=== PATIENT | male | born 1950 | race African-American/Black ===

== ENCOUNTER 2021-09-15 11:16 | Inpatient (IN) | payer OTHER ==
[~2021-09-15] VITALS: Ht 188 cm; Wt 87.6 kg
[~2021-09-15 11:16] MED LIST: ASPI-1497 MT; LEVO50TA PO; METO-539 MT
[2021-09-15 12:41] LABS: BASOPHILS % 0.5 % (0.0-2.0); EOSINOPHILS % 1.4 % (0.0-5.0); HEMATOCRIT. 37.6 % (42.0-52.0); HEMOGLOBIN. 12.3 g/dL (14.0-18.0); LYMPHOCYTES % 16.4 % (20.0-50.0); MEAN CORPUSCULAR HEMOGLOBIN 29.4 pg (28.0-32.0); MEAN CORPUSCULAR VOLUME 89.5 fL (80.0-94.0); MEAN PLATELET VOLUME 7.4 fl (7.4-10.4); MONOCYTES % 3.8 % (2.0-8.0); NEUTROPHILS % 77.9 % (40.0-76.0); PLATELET 113 x1000/uL (130-400); RED CELL DISTRIBUTION WIDTH 27.3 % (11.6-14.6)
[2021-09-15] MEDS ORDERED: DILTIAZEM HCL 5MG/ML 5ML VIAL IV ONE (12:45)
[2021-09-15] MEDS ORDERED: SODIUM CHLORIDE 0.9% 500 ML IV ONE (12:45)
[2021-09-15 12:56] LABS: CHLORIDE 93 mEq/L (98-107)
[2021-09-15 13:13] LABS: PLATELET ESTIMATE SLIGHTLY DECREASED
[2021-09-15] MEDS ORDERED: MIDAZOLAM HCL 2 MG/2 ML VIAL IV ONE (14:15)
[2021-09-15] MEDS ORDERED: ONDANSETRON HCL 4MG/2ML INJ IV PRN (14:30)
[2021-09-15] MEDS ORDERED: ACETAMINOPHEN 325MG TABLET PO PRN (14:30)
[2021-09-15 16:20] VITALS: BP_SYST 114; BP_SYST 135; BP_SYST 92; BP_DIAS 58; BP_DIAS 77; BP_DIAS 86
[2021-09-15 20:00] VITALS: BP 122/68
[2021-09-16] VITALS (7 sets, daily range): BP systolic 88–120; BP diastolic 51–76
[2021-09-16 06:56] LABS: HEMATOCRIT. 33.2 % (42.0-52.0); HEMOGLOBIN. 10.8 g/dL (14.0-18.0); MEAN CORPUSCULAR HEMOGLOBIN 29.3 pg (28.0-32.0); MEAN CORPUSCULAR VOLUME 90.2 fL (80.0-94.0); MEAN PLATELET VOLUME 7.8 fl (7.4-10.4); PLATELET 93 x1000/uL (130-400); RED BLOOD CELL COUNT 3.68 mill/uL (4.7-6.1); RED CELL DISTRIBUTION WIDTH 27.3 % (11.6-14.6)
[2021-09-16] MEDS ORDERED: POTASSIUM CHLORIDE 20MEQ TABLET SR PO NR (08:00)
[2021-09-16 09:51] LABS: PLATELET ESTIMATE DECREASED
[2021-09-16] MEDS ORDERED: MAGNESIUM 4 G PREMIX 100 ML IV NR (10:00)
[2021-09-16] MEDS: APIXABAN 5 MG TABLET PO SCH ×2 (12:41→21:19)
[2021-09-16] MEDS: FLUDROCORTISONE ACETATE 0.1MG TABLET PO SCH (15:36)
[2021-09-17] VITALS: BP 118/66
[2021-09-17 04:00] VITALS: BP_SYST 140; BP_SYST 147; BP_SYST 152; BP_DIAS 74; BP_DIAS 91; BP_DIAS 93
[2021-09-17 06:03] LABS: BASOPHILS % 0.5 % (0.0-2.0); EOSINOPHILS % 6.3 % (0.0-5.0); HEMATOCRIT. 30.5 % (42.0-52.0); HEMOGLOBIN. 10.2 g/dL (14.0-18.0); LYMPHOCYTES % 22.7 % (20.0-50.0); MEAN CORPUSCULAR HEMOGLOBIN 29.9 pg (28.0-32.0); MEAN CORPUSCULAR VOLUME 89.4 fL (80.0-94.0); MEAN PLATELET VOLUME 7.7 fl (7.4-10.4); MONOCYTES % 5.9 % (2.0-8.0); NEUTROPHILS % 64.6 % (40.0-76.0); PLATELET 73 x1000/uL (130-400); RED BLOOD CELL COUNT 3.42 mill/uL (4.7-6.1); RED CELL DISTRIBUTION WIDTH 27.1 % (11.6-14.6)
[2021-09-17 06:59] LABS: CHLORIDE 94 mEq/L (98-107)
[2021-09-17 08:00] VITALS: BP_SYST 116; BP_SYST 128; BP_DIAS 60; BP_DIAS 76
[2021-09-17] MEDS ORDERED: POTASSIUM CHLORIDE 20MEQ TABLET SR PO NR (09:15)
[2021-09-17] MEDS: FLUDROCORTISONE ACETATE 0.1MG TABLET PO SCH (09:23)
[2021-09-17] MEDS: APIXABAN 5 MG TABLET PO SCH ×2 (09:23→21:25)
[2021-09-17 12:00] VITALS: BP 146/91
[2021-09-17] MEDS: MIDODRINE HCL 5MG TABLET PO SCH ×2 (14:00→21:35)
[2021-09-17 16:00] VITALS: BP 150/92
[2021-09-17] MEDS ORDERED: CYAN-50 PO (19:17)
[2021-09-17] MEDS ORDERED: AMLO5TAB88 PO (19:17)
[2021-09-17] MEDS ORDERED: ALLO100T PO (19:17)
[2021-09-17] MEDS ORDERED: CARB15DR EACHEYE (19:17)
[2021-09-17] MEDS ORDERED: METO-539 PO (19:17)
[2021-09-17] MEDS ORDERED: LIP40 PO (19:17)
[2021-09-17] MEDS ORDERED: ASPI-1406 PO (19:17)
[2021-09-17] MEDS ORDERED: GABA-532 PO (19:36)
[2021-09-17] MEDS ORDERED: FERR325T6 PO (19:36)
[2021-09-17] MEDS ORDERED: DIGO125T80 PO (19:36)
[2021-09-17] MEDS ORDERED: [UNRECOGNIZED DRUG - OTHER] TOP (19:36)
[2021-09-17] MEDS ORDERED: MAGN420T PO (19:36)
[2021-09-17] MEDS ORDERED: FENO48TA10 PO (19:36)
[2021-09-17 20:00] VITALS: BP 146/83
[2021-09-18] VITALS: BP 158/71
[2021-09-18 04:00] VITALS: BP 176/96
[2021-09-18] MEDS: MIDODRINE HCL 5MG TABLET PO SCH ×3 (05:54→21:01)
[2021-09-18 06:49] LABS: BASOPHILS % 0.4 % (0.0-2.0); EOSINOPHILS % 4.5 % (0.0-5.0); HEMATOCRIT. 30.7 % (42.0-52.0); HEMOGLOBIN. 10.3 g/dL (14.0-18.0); LYMPHOCYTES % 20.4 % (20.0-50.0); MEAN CORPUSCULAR HEMOGLOBIN 29.9 pg (28.0-32.0); MEAN CORPUSCULAR VOLUME 89.4 fL (80.0-94.0); MEAN PLATELET VOLUME 7.7 fl (7.4-10.4); MONOCYTES % 9.1 % (2.0-8.0); NEUTROPHILS % 65.6 % (40.0-76.0); PLATELET 71 x1000/uL (130-400); RED BLOOD CELL COUNT 3.44 mill/uL (4.7-6.1); RED CELL DISTRIBUTION WIDTH 27.5 % (11.6-14.6)
[2021-09-18 07:38] LABS: CHLORIDE 94 mEq/L (98-107)
[2021-09-18 08:04] VITALS: BP_SYST 153; BP_SYST 177; BP_DIAS 84; BP_DIAS 99
[2021-09-18] MEDS: FLUDROCORTISONE ACETATE 0.1MG TABLET PO SCH (08:18)
[2021-09-18] MEDS: APIXABAN 5 MG TABLET PO SCH ×2 (08:18→20:30)
[2021-09-18 10:12] LABS: CLARITY URINE CLEAR (CLEAR); COLOR URINE YELLOW (YELLOW); KETONES URINE NEGATIVE (NEGATIVE); LEUKOCYTE ESTERASE URINE NEGATIVE (NEGATIVE); NITRITE URINE NEGATIVE (NEGATIVE); OCCULT BLOOD URINE 2+ (NEGATIVE); PROTEIN URINE NEGATIVE (NEGATIVE); SPECIFIC GRAVITY URINE 1.004 (1.005-1.030); UROBILINOGEN URINE 0.2 E.U./dL (0.2-1.0)
[2021-09-18] MEDS: POTASSIUM CHLORIDE 20MEQ/PACKET PO NR ×2 (11:43→11:46)
[2021-09-18 12:15] VITALS: BP 144/82
[2021-09-18] MEDS ORDERED: MECLIZINE 12.5MG TABLET PO PRN (13:15)
[2021-09-18 15:40] VITALS: BP 174/100
[2021-09-18 20:00] VITALS: BP 154/94
[2021-09-19] VITALS: BP 153/82
[2021-09-19 04:00] VITALS: BP 144/86
[2021-09-19] MEDS: MIDODRINE HCL 5MG TABLET PO SCH ×3 (06:05→21:17)
[2021-09-19 06:38] LABS: BASOPHILS % 0.4 % (0.0-2.0); EOSINOPHILS % 0.9 % (0.0-5.0); HEMATOCRIT. 30.4 % (42.0-52.0); LYMPHOCYTES % 17.3 % (20.0-50.0); MEAN CORPUSCULAR HEMOGLOBIN 29.4 pg (28.0-32.0); MEAN CORPUSCULAR VOLUME 89.4 fL (80.0-94.0); MEAN PLATELET VOLUME 7.4 fl (7.4-10.4); MONOCYTES % 13.8 % (2.0-8.0); NEUTROPHILS % 67.6 % (40.0-76.0); PLATELET 85 x1000/uL (130-400); RED CELL DISTRIBUTION WIDTH 28.2 % (11.6-14.6)
[2021-09-19 07:11] LABS: CHLORIDE 94 mEq/L (98-107)
[2021-09-19 08:00] VITALS: BP 128/72
[2021-09-19] MEDS: APIXABAN 5 MG TABLET PO SCH ×2 (10:05→21:16)
[2021-09-19] MEDS: FLUDROCORTISONE ACETATE 0.1MG TABLET PO SCH (10:05)
[2021-09-19 12:00] VITALS: BP 122/79
[2021-09-19] MEDS ORDERED: MAGNESIUM 4 G PREMIX 100 ML IV NR (14:00)
[2021-09-19] MEDS ORDERED: POTASSIUM CHLORIDE 20MEQ TABLET SR PO NR (15:30)
[2021-09-19 16:00] VITALS: BP 120/70
[2021-09-19 20:00] VITALS: BP 143/76
[2021-09-20] VITALS: BP 150/85
[2021-09-20 04:00] VITALS: BP 135/89
[2021-09-20] MEDS: MIDODRINE HCL 5MG TABLET PO SCH ×2 (05:29→14:00)
[2021-09-20 08:00] VITALS: BP_SYST 122; BP_SYST 124; BP_SYST 138; BP_DIAS 76; BP_DIAS 79; BP_DIAS 82
[2021-09-20 08:12] LABS: HEMOGLOBIN. 10.1 g/dL (14.0-18.0); MEAN CORPUSCULAR HEMOGLOBIN 29.9 pg (28.0-32.0); MEAN CORPUSCULAR VOLUME 88.8 fL (80.0-94.0); MEAN PLATELET VOLUME 7.7 fl (7.4-10.4); PLATELET 155 x1000/uL (130-400); RED BLOOD CELL COUNT 3.37 mill/uL (4.7-6.1); RED CELL DISTRIBUTION WIDTH 27.1 % (11.6-14.6)
[2021-09-20 08:58] LABS: CHLORIDE 95 mEq/L (98-107)
[2021-09-20] MEDS: APIXABAN 5 MG TABLET PO SCH (09:28)
[2021-09-20] MEDS: FLUDROCORTISONE ACETATE 0.1MG TABLET PO SCH (09:28)
[2021-09-20 12:00] VITALS: BP_SYST 121; BP_SYST 127; BP_DIAS 76; BP_DIAS 82
[2021-09-20] MEDS ORDERED: APIX5TAB PO (12:30)
[2021-09-20] MEDS ORDERED: FLOR PO (12:30)
[2021-09-20] MEDS ORDERED: MIDO5TAB4 PO (12:30)
[2021-09-20 15:06] LABS: PLATELET ESTIMATE NORMAL
[2021-09-20 16:00] VITALS: BP 146/85
[2021-09-20 17:01] VITALS: BP 146/85
== END 2021-09-20 19:00 | disposition home or self-care (01) | DRG 73 ==
LOC: ER 11:16 → ENRESERV 15:14 → 8WST 17:04
PROVIDERS: ADMIT Internal Medicine; ATTEND Internal Medicine
PROC: 5A2204Z Restoration of Cardiac Rhythm, Single (ICD-10-PCS; principal; 2021-09-15)
DX: G90.8 Other disorders of autonomic nervous system (principal); N17.0 Acute kidney failure with tubular necrosis; I48.92 Unspecified atrial flutter; E44.1 Mild protein-calorie malnutrition; I50.30 Unspecified diastolic (congestive) heart failure; I47.1 Supraventricular tachycardia; E87.8 Other disorders of electrolyte and fluid balance, not elsewhere classified; I48.91 Unspecified atrial fibrillation; I11.0 Hypertensive heart disease with heart failure; M10.9 Gout, unspecified; M19.90 Unspecified osteoarthritis, unspecified site; G47.33 Obstructive sleep apnea (adult) (pediatric); D64.9 Anemia, unspecified; E03.9 Hypothyroidism, unspecified; E78.00 Pure hypercholesterolemia, unspecified; G62.9 Polyneuropathy, unspecified; M75.52 Bursitis of left shoulder; I95.1 Orthostatic hypotension; M75.51 Bursitis of right shoulder; G56.02 Carpal tunnel syndrome, left upper limb; Z83.3 Family history of diabetes mellitus; Z88.5 Allergy status to narcotic agent; Z63.4 Disappearance and death of family member; Z88.8 Allergy status to other drugs, medicaments and biological substances; Z79.01 Long term (current) use of anticoagulants; Z79.899 Other long term (current) drug therapy; Z68.24 Body mass index [BMI] 24.0-24.9, adult
CPT/HCPCS: 36415; 71045; 80048; 80053; 80061; 81003; 83735; 83880; 84484; 85025; 93005; 93306; 97161; 97162; 97530; 99291; J2250; J3475; J3490; J7040

== ENCOUNTER 2022-05-05 11:16 | Inpatient (IN) | payer OTHER ==
[~2022-05-05] VITALS: Ht 188 cm; Wt 89.8 kg
[~2022-05-05 11:16] MED LIST changes: +ALLO100T PO; +ASPI-1406 PO; -ASPI-1497 MT; +CARB15DR EACHEYE; +CYAN-50 PO; +DIGO-34 PO; +DILT30TA37 PO; +FENO48TA10 PO; +FERR-63 PO; +FERR325T6 PO; +FLOR PO; +FOLI-43 PO; +GABA-532 PO; -LEVO50TA PO; +LEVO75TA7 PO; +LIP40 PO; +MAGN420T PO; -METO-539 MT; +MIDO5TAB4 PO; +[UNRECOGNIZED DRUG - OTHER] TOP
[2022-05-05] MEDS ORDERED: HYDROCODONE/ACETAMINOPHEN 5/325MG TABLET PO STA (12:24)
[2022-05-05] MEDS ORDERED: SODIUM CHLORIDE 0.9% 1,000 ML IV ONE (12:30)
[2022-05-05 13:10] LABS: BASOPHILS % 0.7 % (0.0-2.0); LYMPHOCYTES % 15.1 % (20.0-50.0); MEAN CORPUSCULAR HEMOGLOBIN 28.8 pg (28.0-32.0); MEAN CORPUSCULAR VOLUME 89.4 fL (80.0-94.0); MEAN PLATELET VOLUME 7.8 fl (7.4-10.4); MONOCYTES % 5.2 % (2.0-8.0); PLATELET 100 x1000/uL (130-400); RED BLOOD CELL COUNT 3.47 mill/uL (4.7-6.1); RED CELL DISTRIBUTION WIDTH 22.5 % (11.6-14.6)
[2022-05-05 13:16] LABS: CHLORIDE 99 mEq/L (98-107)
[2022-05-05 13:20] LABS: INR 1.2; PROTHROMBIN TIME 12.4 sec (9.6-11.0)
[2022-05-05 13:26] LABS: PLATELET ESTIMATE DECREASED
[2022-05-05] MEDS ORDERED: POTASSIUM CHLORIDE 20MEQ TABLET SR PO ONE (14:00)
[2022-05-05] MEDS ORDERED: ASPIRIN 81MG TABLET PO ONE (14:00)
[2022-05-05] MEDS ORDERED: KCL 10MEQ/50ML PREMIX 50 ML IV ONE (14:00)
[2022-05-05] MEDS ORDERED: HYDROCODONE/ACETAMINOPHEN 5/325MG TABLET PO SCH (15:15)
[2022-05-05] MEDS ORDERED: MAGNESIUM/ALUMINUM HYDROXIDE/SIMETHICONE 30ML UDC PO PRN (15:45)
[2022-05-05] MEDS ORDERED: DOCUSATE SODIUM 100MG CAPSULE PO PRN (15:45)
[2022-05-05] MEDS ORDERED: ENOXAPARIN 40MG/0.4ML SYR SUBCUT SCH (15:45)
[2022-05-05] MEDS ORDERED: CLONIDINE 0.1MG TABLET PO PRN (15:45)
[2022-05-05] MEDS ORDERED: ONDANSETRON HCL 4MG/2ML INJ IV PRN (15:45)
[2022-05-05] MEDS ORDERED: ACETAMINOPHEN 325MG TABLET PO PRN (15:45)
[2022-05-05] MEDS ORDERED: LORAZEPAM 2MG/ML CPJ IV ONE (16:15)
[2022-05-05] MEDS ORDERED: MAGNESIUM 2 G PREMIX 50 ML IV NR (16:15)
[2022-05-05 19:34] LABS: CREATINE KINASE MB FRACTION < 1.0 ng/mL (0.5-3.6)
[2022-05-05 20:42] VITALS: BP 142/78
[2022-05-05] MEDS ORDERED: MIDODRINE HCL 5MG TABLET PO SCH (22:00)
[2022-05-06] MEDS: DIGOXIN 125MCG TABLET PO SCH ×2 (00:02→19:03)
[2022-05-06] MEDS: GABAPENTIN 300MG CAPSULE PO SCH ×4 (00:03→17:09)
[2022-05-06] MEDS: DILTIAZEM HCL 30MG TABLET PO SCH ×4 (00:07→21:57)
[2022-05-06] MEDS: APIXABAN 5 MG TABLET PO SCH ×3 (00:08→17:09)
[2022-05-06] MEDS: SODIUM CHLORIDE 0.9% INJ 3ML FLUSH IVF SCH ×4 (00:08→21:56)
[2022-05-06] MEDS: LEVOTHYROXINE SODIUM 75MCG TABLET PO SCH (06:27)
[2022-05-06] MEDS: MIDODRINE HCL 5MG TABLET PO SCH ×2 (06:27→13:33)
[2022-05-06 07:14] LABS: BASOPHILS % 0.6 % (0.0-2.0); EOSINOPHILS % 6.3 % (0.0-5.0); HEMATOCRIT. 27.3 % (42.0-52.0); HEMOGLOBIN. 8.9 g/dL (14.0-18.0); LYMPHOCYTES % 25.3 % (20.0-50.0); MEAN CORPUSCULAR HEMOGLOBIN 29.7 pg (28.0-32.0); MEAN PLATELET VOLUME 8.1 fl (7.4-10.4); MONOCYTES % 7.2 % (2.0-8.0); NEUTROPHILS % 60.6 % (40.0-76.0); PLATELET 97 x1000/uL (130-400); RED BLOOD CELL COUNT 2.99 mill/uL (4.7-6.1); RED CELL DISTRIBUTION WIDTH 22.2 % (11.6-14.6)
[2022-05-06 08:00] VITALS: BP 125/72
[2022-05-06 08:10] LABS: CHLORIDE 102 mEq/L (98-107)
[2022-05-06] MEDS: ATORVASTATIN CALCIUM 40MG TABLET PO SCH (08:28)
[2022-05-06] MEDS: ALLOPURINOL 100 MG TABLET PO SCH (08:29)
[2022-05-06] MEDS: FOLIC ACID 1MG TABLET PO SCH (08:29)
[2022-05-06] MEDS: ASPIRIN 81MG EC TABLET PO SCH (08:29)
[2022-05-06] MEDS: FLUDROCORTISONE ACETATE 0.1MG TABLET PO SCH (08:29)
[2022-05-06] MEDS ORDERED: KCL 20MEQ/100ML PREMIX 100 ML IV NR (11:53)
[2022-05-06] MEDS ORDERED: MAGNESIUM 2 G PREMIX 50 ML IV NR (11:54)
[2022-05-06] MEDS ORDERED: POTASSIUM CHLORIDE 20MEQ/PACKET PO NR (11:55)
[2022-05-06 12:00] VITALS: BP 112/60
[2022-05-06] MEDS: FENOFIBRATE NANOCRYSTALLIZED 48MG TABLET PO SCH (12:40)
[2022-05-06] MEDS: CYANOCOBALAMIN 1000MCG TABLET PO SCH (12:40)
[2022-05-06] MEDS ORDERED: CALCIUM GLUCONATE 1GM PREMIX 50 ML IV NR (14:00)
[2022-05-06 14:43] LABS: VITAMIN B12 SERUM 1310 pg/mL (211-911)
[2022-05-06 14:44] LABS: FOLIC ACID (FOLATE) SERUM > 20.00 ng/mL (>5.38)
[2022-05-06 16:00] VITALS: BP 129/74
[2022-05-06] MEDS: SODIUM CHLORIDE 0.9% 1,000 ML IV SCH (17:04)
[2022-05-06] MEDS: LOPERAMIDE HCL 2MG CAPSULE PO SCH ×2 (17:04→21:55)
[2022-05-06 19:32] LABS: T4 FREE 1.03 ng/dL (0.76-1.46)
[2022-05-06 20:00] VITALS: BP 135/65
[2022-05-06 21:06] LABS: CREATINE KINASE 68 IU/L (39-308); CREATINE KINASE MB FRACTION < 1.0 ng/mL (0.5-3.6)
[2022-05-07] VITALS: BP 128/65
[2022-05-07 01:12] LABS: CREATINE KINASE 46 IU/L (39-308); CREATINE KINASE MB FRACTION < 1.0 ng/mL (0.5-3.6)
[2022-05-07 04:00] VITALS: BP 132/75
[2022-05-07] MEDS: LOPERAMIDE HCL 2MG CAPSULE PO SCH ×2 (04:15→15:01)
[2022-05-07] MEDS: SODIUM CHLORIDE 0.9% 1,000 ML IV SCH ×2 (04:32→15:01)
[2022-05-07] MEDS: LEVOTHYROXINE SODIUM 75MCG TABLET PO SCH (05:43)
[2022-05-07] MEDS: DILTIAZEM HCL 30MG TABLET PO SCH ×2 (05:44→15:00)
[2022-05-07] MEDS: SODIUM CHLORIDE 0.9% INJ 3ML FLUSH IVF SCH ×2 (05:45→14:00)
[2022-05-07 06:57] LABS: CLARITY URINE CLEAR (CLEAR); COLOR URINE YELLOW (YELLOW); KETONES URINE NEGATIVE (NEGATIVE); LEUKOCYTE ESTERASE URINE TRACE (NEGATIVE); NITRITE URINE NEGATIVE (NEGATIVE); OCCULT BLOOD URINE TRACE (NEGATIVE); PROTEIN URINE TRACE (NEGATIVE); SPECIFIC GRAVITY URINE 1.012 (1.005-1.030); UROBILINOGEN URINE 0.2 E.U./dL (0.2-1.0)
[2022-05-07 07:05] LABS: BASOPHILS % 0.3 % (0.0-2.0); EOSINOPHILS % 4.6 % (0.0-5.0); HEMATOCRIT. 29.7 % (42.0-52.0); HEMOGLOBIN. 9.5 g/dL (14.0-18.0); LYMPHOCYTES % 25.9 % (20.0-50.0); MEAN CORPUSCULAR HEMOGLOBIN 29.6 pg (28.0-32.0); MEAN CORPUSCULAR VOLUME 93.1 fL (80.0-94.0); MONOCYTES % 7.7 % (2.0-8.0); NEUTROPHILS % 61.5 % (40.0-76.0); PLATELET 104 x1000/uL (130-400); RED CELL DISTRIBUTION WIDTH 22.5 % (11.6-14.6)
[2022-05-07] MEDS ORDERED: CALCIUM GLUCONATE 100MG/ML 10ML VIAL IV ONE (07:45)
[2022-05-07 07:56] LABS: *AMPHETAMINES SCREEN URINE NEGATIVE (NEGATIVE); *BARBITURATES SCREEN URINE NEGATIVE (NEGATIVE); *BENZODIAZEPINES SCREEN URINE NEGATIVE (NEGATIVE); *COCAINE SCREEN URINE NEGATIVE (NEGATIVE); CANNABINOID URINE SCREEN NEGATIVE (NEGATIVE); METHADONE URINE SCREEN NEGATIVE (NEGATIVE); OPIATES URINE SCREEN PRESUMTIVE POSITIVE (NEGATIVE); PHENCYCLIDINE URINE SCREEN NEGATIVE (NEGATIVE)
[2022-05-07 08:00] VITALS: BP 141/77
[2022-05-07] MEDS: ALLOPURINOL 100 MG TABLET PO SCH (08:07)
[2022-05-07] MEDS: GABAPENTIN 300MG CAPSULE PO SCH ×2 (08:07→15:01)
[2022-05-07] MEDS: FLUDROCORTISONE ACETATE 0.1MG TABLET PO SCH (08:07)
[2022-05-07] MEDS: ASPIRIN 81MG EC TABLET PO SCH (08:07)
[2022-05-07] MEDS: FOLIC ACID 1MG TABLET PO SCH (08:07)
[2022-05-07] MEDS: ATORVASTATIN CALCIUM 40MG TABLET PO SCH (08:07)
[2022-05-07] MEDS: APIXABAN 5 MG TABLET PO SCH (08:08)
[2022-05-07] MEDS: FENOFIBRATE NANOCRYSTALLIZED 48MG TABLET PO SCH (08:08)
[2022-05-07] MEDS: CYANOCOBALAMIN 1000MCG TABLET PO SCH (08:09)
[2022-05-07 08:22] LABS: CHLORIDE 106 mEq/L (98-107)
[2022-05-07] MEDS ORDERED: CALCIUM GLUCONATE 1GM PREMIX 50 ML IV SCH (09:00)
[2022-05-07] MEDS ORDERED: FERROUS SULFATE 325MG TABLET PO SCH (09:00)
[2022-05-07 09:10] LABS: CREATINE KINASE 55 IU/L (39-308); CREATINE KINASE MB FRACTION < 1.0 ng/mL (0.5-3.6); PHOSPHORUS 2.6 mg/dL (2.5-4.9)
[2022-05-07 10:58] LABS: DIGOXIN 0.3 ng/mL (0.9-2.0)
[2022-05-07] MEDS ORDERED: IOHEXOL-350 100 ML BOTTLE ONE (11:10)
[2022-05-07 12:00] VITALS: BP 120/67
[2022-05-07] MEDS ORDERED: MAGNESIUM 2 G PREMIX 50 ML IV SCH (12:00)
[2022-05-07] MEDS ORDERED: IMOD PO (12:20)
[2022-05-07] MEDS ORDERED: APIX5TAB PO (12:20)
[2022-05-07] MEDS ORDERED: CALC-775 MT (12:20)
[2022-05-07 13:19] VITALS: BP 120/67
[2022-05-07 14:40] LABS: TOTAL IRON BINDING CAPACITY 264 ug/dL (250-450)
[2022-05-07 16:00] VITALS: BP 131/77
[2022-05-07] MEDS ORDERED: [UNRECOGNIZED DRUG - OTHER] PO SCH (17:20)
== END 2022-05-07 19:05 | disposition home or self-care (01) | DRG 640 ==
LOC: ER 11:16 → EDBEDREQ 14:31 → 3WST 22:03
PROVIDERS: ADMIT Internal Medicine; ATTEND Internal Medicine
DX: E86.0 Dehydration (principal); E43 Unspecified severe protein-calorie malnutrition; I24.9 Acute ischemic heart disease, unspecified; K86.1 Other chronic pancreatitis; I48.92 Unspecified atrial flutter; E78.5 Hyperlipidemia, unspecified; E83.42 Hypomagnesemia; E83.51 Hypocalcemia; E87.6 Hypokalemia; I48.91 Unspecified atrial fibrillation; D64.9 Anemia, unspecified; D69.6 Thrombocytopenia, unspecified; E03.9 Hypothyroidism, unspecified; I11.0 Hypertensive heart disease with heart failure; I50.9 Heart failure, unspecified; M16.0 Bilateral primary osteoarthritis of hip; M10.9 Gout, unspecified; F10.10 Alcohol abuse, uncomplicated; Z79.01 Long term (current) use of anticoagulants; Z88.8 Allergy status to other drugs, medicaments and biological substances; Z79.899 Other long term (current) drug therapy; Z68.25 Body mass index [BMI] 25.0-25.9, adult
CPT/HCPCS: 36415; 71045; 72170; 73560; 74178; 80048; 80053; 80162; 80305; 80320; 81003; 82306; 82330; 82550; 82553; 82607; 82728; 82746; 83036; 83540; 83550; 83735; 83880; 83970; 84100; 84439; 84443; 84484; 85025; 87426; 93005; 93306; 99291; J0610; J2060; J3475; J3480; J7030; Q9967; G0480

== ENCOUNTER 2022-09-19 16:28 | Emergency (ER) | payer MEDICARE, OTHER ==
[~2022-09-19] VITALS: Ht 188 cm; Wt 85.0 kg
[~2022-09-19 16:28] MED LIST changes: +APIX5TAB PO; +CALC-775 MT; +IMOD PO
[2022-09-19 16:33] VITALS: O2SAT 100
[2022-09-19] MEDS ORDERED: SODIUM CHLORIDE 0.9% 1,000 ML IV ONE (17:45)
[2022-09-19 19:29] LABS: BASOPHILS % 0.1 % (0.0-2.0); EOSINOPHILS % 0.2 % (0.0-5.0); HEMATOCRIT. 32.8 % (42.0-52.0); HEMOGLOBIN. 10.6 g/dL (14.0-18.0); LYMPHOCYTES % 11.8 % (20.0-50.0); MEAN CORPUSCULAR HEMOGLOBIN 29.2 pg (28.0-32.0); MEAN CORPUSCULAR VOLUME 89.9 fL (80.0-94.0); MEAN PLATELET VOLUME 6.9 fl (7.4-10.4); MONOCYTES % 14.1 % (2.0-8.0); NEUTROPHILS % 73.8 % (40.0-76.0); PLATELET 443 x1000/uL (130-400); RED BLOOD CELL COUNT 3.64 mill/uL (4.7-6.1); RED CELL DISTRIBUTION WIDTH 28.8 % (11.6-14.6)
[2022-09-19 19:38] LABS: CHLORIDE 95 mEq/L (98-107)
[2022-09-19 19:52] LABS: PLATELET ESTIMATE INCREASED
[2022-09-19 23:20] VITALS: BP 124/77; PULSE 102; RESP 17; TEMP 98.3
== END 2022-09-20 00:13 | disposition home or self-care (01) ==
LOC: ER 16:40
DX: S06.0X0A Concussion without loss of consciousness, initial encounter (principal); I48.91 Unspecified atrial fibrillation; E11.9 Type 2 diabetes mellitus without complications; I10 Essential (primary) hypertension; X58.XXXA Exposure to other specified factors, initial encounter; Y93.89 Activity, other specified; Y92.89 Other specified places as the place of occurrence of the external cause; Y99.8 Other external cause status
CPT/HCPCS: 80053; 83880; 85025; 36415; 71045; 73030; 70450; 93005; 96360; 96361; 99285; J7030

== ENCOUNTER 2022-11-04 06:53 | Inpatient (IN) | payer MEDICARE, OTHER ==
[~2022-11-04] VITALS: Ht 188 cm; Wt 76.7 kg
[2022-11-04] MEDS ORDERED: ACETAMINOPHEN 325MG TABLET PO STA (07:07)
[2022-11-04] MEDS ORDERED: NITROGLYCERIN 0.4MG TABLET SL SL PRN (07:15)
[2022-11-04] MEDS ORDERED: DEXTROSE 50% WATER 50ML SYRINGE IV SCH (07:45)
[2022-11-04] MEDS ORDERED: ONDANSETRON HCL 4MG/2ML INJ IV SCH (07:45)
[2022-11-04 08:03] LABS: BASOPHILS % 0.6 % (0.0-2.0); HEMATOCRIT. 31.2 % (42.0-52.0); HEMOGLOBIN. 9.4 g/dL (14.0-18.0); MEAN CORPUSCULAR HEMOGLOBIN 27.5 pg (28.0-32.0); MEAN CORPUSCULAR HGB CONC 30.1 g/dL (31.0-37.0); MEAN CORPUSCULAR VOLUME 91.2 fL (80.0-94.0); MEAN PLATELET VOLUME 7.2 fl (7.4-10.4); MONOCYTES % 4.5 % (2.0-8.0); NEUTROPHILS % 84.9 % (40.0-76.0); PLATELET 201 x1000/uL (130-400); RED BLOOD CELL COUNT 3.42 mill/uL (4.7-6.1); RED CELL DISTRIBUTION WIDTH 24.5 % (11.6-14.6)
[2022-11-04 08:18] LABS: CHLORIDE 98 mEq/L (98-107); INDEX HEMOLYSI 1 (1-3); INDEX ICTERIC 1 (1-4); INDEX LIPEMIC 1 (1-3); SODIUM 140 mEq/L (136-145)
[2022-11-04 08:28] LABS: ADD RBC MORPHOLOGY YES; DIFFERENTIAL COMMENT 1
[2022-11-04 08:41] LABS: ALANINE AMINOTRANSFERASE 24 IU/L (13-61); ALBUMIN 2.7 g/dL (3.4-5.0); ASPARTATE AMINOTRANSFERASE 49 IU/L (15-37); BILIRUBIN TOTAL 0.6 mg/dL (0.1-1.0); CALCIUM 7.4 mg/dL (8.5-10.1); CARBON DIOXIDE 10 mEq/L (21-32); CREATININE 0.7 mg/dL (0.6-1.3); GLUCOSE 71 mg/dL (70-105); NT PRO B-TYPE NATRIURETIC PEP 2056 pg/mL (5-125); PROTEIN TOTAL 7.2 g/dL (6.0-8.3); UREA NITROGEN BLOOD 8 mg/dL (7-21)
[2022-11-04 08:50] LABS: TROPONIN I HIGH SENSITIVITY 134 ng/L (<78)
[2022-11-04] MEDS ORDERED: ASPIRIN 325MG EC TABLET PO ONE (09:00)
[2022-11-04 09:01] LABS: DIGOXIN 0.1 ng/mL (0.9-2.0)
[2022-11-04] MEDS ORDERED: HYDROCODONE/ACETAMINOPHEN 10/325MG TABLET PO ONE (09:30)
[2022-11-04] MEDS ORDERED: SODIUM CHLORIDE 0.9% 500 ML IV ONE ×2 (09:45→11:00)
[2022-11-04] MEDS ORDERED: SODIUM BICARBONATE 8.4% 1 MEQ/ML 50ML SYR IV NR ×2 (09:45→16:15)
[2022-11-04 09:54] LABS: ANISOCYTOSIS 3+
[2022-11-04 09:55] LABS: PLATELET ESTIMATE NORMAL
[2022-11-04] MEDS ORDERED: POTASSIUM CHLORIDE INJ 40 MEQ in DEXT 5% WATER 250 ML IV SCH (10:00)
[2022-11-04 10:25] LABS: LACTIC ACID 6.4 mmol/L (0.4-2.0); TROPONIN I HIGH SENSITIVITY 132 ng/L (<78)
[2022-11-04] MEDS ORDERED: HYDROCORTISONE SOD SUCCINATE 100 MG/2 ML VIAL IV NR (10:30)
[2022-11-04] MEDS ORDERED: VANCOMYCIN 1G PREMIX 200 ML IV NR (10:30)
[2022-11-04] MEDS ORDERED: DEXT 5%/0.9% NACL 1,000 ML IV ONE (11:00)
[2022-11-04] MEDS ORDERED: PIPERACILLIN/TAZ 3.375G PREMIX 50 ML IV NR (11:00)
[2022-11-04] MEDS ORDERED: HYDROCODONE/ACETAMINOPHEN 10/325MG TABLET PO NR (12:30)
[2022-11-04 14:15] LABS: CLARITY URINE CLEAR (CLEAR); COLOR URINE YELLOW (YELLOW); GLUCOSE URINE NEGATIVE (NEGATIVE); KETONES URINE 3+ (NEGATIVE); LEUKOCYTE ESTERASE URINE NEGATIVE (NEGATIVE); NITRITE URINE NEGATIVE (NEGATIVE); OCCULT BLOOD URINE TRACE (NEGATIVE); PH URINE 5.5 (4.5-8.0); PROTEIN URINE 1+ (NEGATIVE); SPECIFIC GRAVITY URINE 1.014 (1.005-1.030); UROBILINOGEN URINE 0.2 E.U./dL (0.2-1.0)
[2022-11-04 14:18] LABS: BACTERIA URINE NONE SEEN; RBC URINE 0-2 /hpf (0-2); SQUAMOUS EPITHELIAL CELL URINE NONE SEEN /lpf (RARE/1+); WBC URINE NONE SEEN /hpf (0-2); YEAST URINE NONE SEEN
[2022-11-04] MEDS ORDERED: POTASSIUM CHLORIDE 20MEQ TABLET SR PO NR (15:45)
[2022-11-04] MEDS ORDERED: IPRATROPIUM/ALBUTEROL 0.5-3(2.5)MG/3ML NEB HHN PRN (16:00)
[2022-11-04] MEDS ORDERED: PIPERACILLIN/TAZ 3.375G PREMIX 50 ML IV SCH (16:00)
[2022-11-04] MEDS ORDERED: CLONIDINE 0.1MG TABLET PO PRN (16:00)
[2022-11-04] MEDS ORDERED: ACETAMINOPHEN 325MG TABLET PO PRN (16:00)
[2022-11-04] MEDS ORDERED: ONDANSETRON HCL 4MG/2ML INJ IV PRN (16:00)
[2022-11-04] MEDS ORDERED: DOCUSATE SODIUM 100MG CAPSULE PO PRN (16:00)
[2022-11-04] MEDS: DEXT 5%/0.45% NACL 1000ML 1,000 ML IV SCH (17:16)
[2022-11-04 17:46] LABS: BG BASE EXCESS 8.8 mmol/L (-2.0-2.0); BG CARBOXYHEMOGLOBIN 1.6 % (0.5-1.5); BG FRACTION INSPIRED OXYGEN 21; BG METHEMOGLOBIN 0.3 % (0.0-1.5); BG OXYGEN SATURATION 93.9 % (92.0-98.5); BG OXYHEMOGLOBIN 92.1 % (94.0-97.0); BG PCO2 50.9 mmHg (35.0-45.0); BG PH 7.443 (7.350-7.450); BG PO2 68.2 mmHg (75.0-100.0); BG SAMPLE SITE LEFT BRACHIAL; BG TOTAL HEMOGLOBIN 9.9 g/dL (12.0-18.0); BG VENT MODE ROOM AIR
[2022-11-04] MEDS ORDERED: ENOXAPARIN 80MG/0.8ML SYR SUBCUT SCH (18:00)
[2022-11-04] MEDS ORDERED: DEXTROSE 50% WATER 50ML SYRINGE IV PRN (18:45)
[2022-11-04] MEDS: ACETAMINOPHEN 325MG TABLET PO PRN (18:53)
[2022-11-04] MEDS: DIGOXIN 125MCG TABLET PO SCH (18:53)
[2022-11-04] MEDS: APIXABAN 5 MG TABLET PO SCH (18:53)
[2022-11-04 19:44] VITALS: BP 162/85; PULSE 78; RESP 18; TEMP 97.7
[2022-11-04 19:53] LABS: INR 1.2; PROTHROMBIN TIME 12.3 sec (9.6-11.0)
[2022-11-04 20:00] VITALS: BP 158/98; PULSE 77; RESP 20; TEMP 96.8
[2022-11-04] MEDS ORDERED: INFLUENZA VACCINE IM ONE (20:00)
[2022-11-04 20:41] LABS: *AMPHETAMINES SCREEN URINE NEGATIVE (NEGATIVE); *BARBITURATES SCREEN URINE NEGATIVE (NEGATIVE); *BENZODIAZEPINES SCREEN URINE NEGATIVE (NEGATIVE); *COCAINE SCREEN URINE NEGATIVE (NEGATIVE); CANNABINOID URINE SCREEN NEGATIVE (NEGATIVE); ECSTASY MDMA SCREEN URINE NEGATIVE (NEGATIVE); METHADONE URINE SCREEN NEGATIVE (NEGATIVE); OPIATES URINE SCREEN NEGATIVE (NEGATIVE); PHENCYCLIDINE URINE SCREEN NEGATIVE (NEGATIVE)
[2022-11-04] MEDS: PIPERACILLIN/TAZOBACTAM 3.375G in DEXT 5% WATER 50ML IV SCH (23:27)
[2022-11-04] MEDS: DILTIAZEM HCL 30MG TABLET PO SCH (23:27)
[2022-11-04] MEDS: BLOOD SUGAR DIAGNOSTIC STRIP TEST SCH (23:47)
[2022-11-04 23:58] LABS: CREATINE KINASE MB FRACTION 1.1 ng/mL (0.5-3.6)
[2022-11-05] VITALS: BP 154/86; PULSE 68; RESP 18; TEMP 96.3
[2022-11-05 04:00] VITALS: BP 128/79; PULSE 64; RESP 18; TEMP 97.9
[2022-11-05] MEDS: PIPERACILLIN/TAZOBACTAM 3.375G in DEXT 5% WATER 50ML IV SCH ×3 (06:05→22:22)
[2022-11-05] MEDS: DILTIAZEM HCL 30MG TABLET PO SCH ×3 (06:05→22:22)
[2022-11-05] MEDS: BLOOD SUGAR DIAGNOSTIC STRIP TEST SCH ×4 (06:06→23:51)
[2022-11-05 06:56] LABS: CHLORIDE 92 mEq/L (98-107); INDEX HEMOLYSI 1 (1-3); INDEX ICTERIC 1 (1-4); INDEX LIPEMIC 1 (1-3); SODIUM 136 mEq/L (136-145)
[2022-11-05 07:18] LABS: CALCIUM 6.5 mg/dL (8.5-10.1); CARBON DIOXIDE 39 mEq/L (21-32); CREATINE KINASE 47 IU/L (39-308); CREATINE KINASE MB FRACTION < 1.0 ng/mL (0.5-3.6); CREATININE 0.6 mg/dL (0.6-1.3); GLUCOSE 168 mg/dL (70-105); UREA NITROGEN BLOOD 6 mg/dL (7-21); URIC ACID 3.5 mg/dL (2.6-7.2)
[2022-11-05 07:55] LABS: TROPONIN I HIGH SENSITIVITY 111 ng/L (<78)
[2022-11-05 08:21] LABS: BASOPHILS % 0.4 % (0.0-2.0); EOSINOPHILS % 0.2 % (0.0-5.0); HEMATOCRIT. 29.3 % (42.0-52.0); HEMOGLOBIN. 9.4 g/dL (14.0-18.0); LYMPHOCYTES % 19.9 % (20.0-50.0); MEAN CORPUSCULAR HEMOGLOBIN 27.6 pg (28.0-32.0); MEAN PLATELET VOLUME 7.7 fl (7.4-10.4); MONOCYTES % 8.1 % (2.0-8.0); NEUTROPHILS % 71.4 % (40.0-76.0); PLATELET 126 x1000/uL (130-400); RED CELL DISTRIBUTION WIDTH 23.7 % (11.6-14.6); WHITE BLOOD COUNT 6.4 x1000/uL (4.5-11.0)
[2022-11-05 08:36] LABS: DIFFERENTIAL COMMENT 1
[2022-11-05 08:37] LABS: MEAN CORPUSCULAR VOLUME 86.3 fL (80.0-94.0)
[2022-11-05] MEDS ORDERED: POTASSIUM CHLORIDE 20MEQ TABLET SR PO NR (09:00)
[2022-11-05] MEDS: APIXABAN 5 MG TABLET PO SCH ×2 (09:00→16:15)
[2022-11-05] MEDS: ATORVASTATIN CALCIUM 40MG TABLET PO SCH (09:00)
[2022-11-05] MEDS ORDERED: ASPIRIN 81MG EC TABLET PO SCH (09:00)
[2022-11-05] MEDS: ALLOPURINOL 100 MG TABLET PO SCH (09:00)
[2022-11-05] MEDS ORDERED: MAGNESIUM 2 G PREMIX 50 ML IV NR (10:00)
[2022-11-05] MEDS ORDERED: MAGNESIUM 2 G PREMIX 50 ML IV ONE (10:00)
[2022-11-05] MEDS: KCL 20MEQ/100ML PREMIX 100 ML IV SCH ×2 (10:55→13:17)
[2022-11-05 12:00] VITALS: BP 128/80; PULSE 69; RESP 16; TEMP 97.6
[2022-11-05] MEDS ORDERED: MAGNESIUM 2 G PREMIX 50 ML IV SCH (12:00)
[2022-11-05] MEDS: DEXT 5%/0.45% NACL 1000ML 1,000 ML IV SCH (12:15)
[2022-11-05 16:00] VITALS: BP 139/88; PULSE 76; RESP 18; TEMP 97.4
[2022-11-05] MEDS: VANCOMYCIN 250MG/5ML ORAL SYRINGE PO SCH ×2 (17:28→23:51)
[2022-11-05] MEDS: DIGOXIN 125MCG TABLET PO SCH (17:28)
[2022-11-05] MEDS: ACETAMINOPHEN 325MG TABLET PO PRN (17:56)
[2022-11-05 18:06] LABS: HEPATITIS B SURFACE ANTIGEN NEGATIVE
[2022-11-05 20:00] VITALS: BP 144/82; PULSE 79; RESP 20; TEMP 97.5
[2022-11-06] VITALS: BP 140/87; PULSE 77; RESP 19; TEMP 97.3
[2022-11-06 04:00] VITALS: BP 132/78; PULSE 74; RESP 19; TEMP 97.1; TEMP 97.3
[2022-11-06] MEDS: DILTIAZEM HCL 30MG TABLET PO SCH ×3 (06:35→21:04)
[2022-11-06] MEDS: BLOOD SUGAR DIAGNOSTIC STRIP TEST SCH ×4 (06:35→23:50)
[2022-11-06] MEDS: PIPERACILLIN/TAZOBACTAM 3.375G in DEXT 5% WATER 50ML IV SCH ×3 (06:35→21:05)
[2022-11-06] MEDS: VANCOMYCIN 250MG/5ML ORAL SYRINGE PO SCH ×4 (06:35→23:50)
[2022-11-06 07:22] LABS: BASOPHILS % 0.6 % (0.0-2.0); EOSINOPHILS % 1.8 % (0.0-5.0); HEMATOCRIT. 28.9 % (42.0-52.0); HEMOGLOBIN. 9.5 g/dL (14.0-18.0); LYMPHOCYTES % 30.1 % (20.0-50.0); MEAN CORPUSCULAR HGB CONC 32.9 g/dL (31.0-37.0); MEAN CORPUSCULAR VOLUME 84.9 fL (80.0-94.0); MEAN PLATELET VOLUME 7.9 fl (7.4-10.4); MONOCYTES % 5.1 % (2.0-8.0); NEUTROPHILS % 62.4 % (40.0-76.0); PLATELET 119 x1000/uL (130-400); RED BLOOD CELL COUNT 3.41 mill/uL (4.7-6.1); WHITE BLOOD COUNT 4.8 x1000/uL (4.5-11.0)
[2022-11-06 07:27] LABS: DIFFERENTIAL COMMENT 1
[2022-11-06 07:37] LABS: CHLORIDE 91 mEq/L (98-107); INDEX HEMOLYSI 1 (1-3); INDEX ICTERIC 1 (1-4); INDEX LIPEMIC 1 (1-3); SODIUM 135 mEq/L (136-145)
[2022-11-06 07:51] LABS: CALCIUM 7.1 mg/dL (8.5-10.1); CARBON DIOXIDE 38 mEq/L (21-32); CREATININE 0.6 mg/dL (0.6-1.3); GLUCOSE 92 mg/dL (70-105); UREA NITROGEN BLOOD 3 mg/dL (7-21)
[2022-11-06 08:00] VITALS: BP 141/81; PULSE 77; RESP 18; TEMP 97.7
[2022-11-06] MEDS: ALLOPURINOL 100 MG TABLET PO SCH (08:27)
[2022-11-06] MEDS: DEXT 5%/0.45% NACL 1000ML 1,000 ML IV SCH (08:27)
[2022-11-06] MEDS: ATORVASTATIN CALCIUM 40MG TABLET PO SCH (08:27)
[2022-11-06] MEDS: ACETAMINOPHEN 325MG TABLET PO PRN (10:14)
[2022-11-06 11:51] VITALS: BP 135/81; PULSE 83; RESP 18; TEMP 97.9
[2022-11-06 12:23] LABS: POTASSIUM 2.5 mEq/L (3.5-5.1)
[2022-11-06] MEDS ORDERED: POTASSIUM CHLORIDE 20MEQ TABLET SR PO NR ×3 (12:30→20:15)
[2022-11-06] MEDS ORDERED: MAGNESIUM 2 G PREMIX 50 ML IV NR (14:30)
[2022-11-06 16:00] VITALS: BP 132/89; PULSE 69; RESP 20; TEMP 99.1
[2022-11-06] MEDS ORDERED: AMI2 PO (16:00)
[2022-11-06] MEDS ORDERED: AMYL1CAP61 PO (16:02)
[2022-11-06] MEDS ORDERED: DILT60TA35 PO (16:06)
[2022-11-06] MEDS ORDERED: DULO20CA18 PO (16:11)
[2022-11-06] MEDS ORDERED: POTA20LI52 PO (16:16)
[2022-11-06] MEDS: DIGOXIN 125MCG TABLET PO SCH (17:16)
[2022-11-06 17:57] LABS: INDEX HEMOLYSI 1 (1-3); INDEX ICTERIC 1 (1-4); INDEX LIPEMIC 1 (1-3)
[2022-11-06 18:01] LABS: IRON 23 ug/dL (50-175); TOTAL IRON BINDING CAPACITY 196 ug/dL (250-450)
[2022-11-06 18:08] LABS: POTASSIUM 2.9 mEq/L (3.5-5.1)
[2022-11-06 18:49] LABS: FOLIC ACID (FOLATE) SERUM 11.4 ng/mL (>5.38)
[2022-11-06 20:31] VITALS: BP 122/74; PULSE 62; RESP 19; TEMP 97.2
[2022-11-06] MEDS: KCL 20MEQ/100ML PREMIX 100 ML IV SCH ×2 (21:05→23:49)
[2022-11-07 00:37] VITALS: BP 143/90; PULSE 89; RESP 16; TEMP 97.6
[2022-11-07 04:20] VITALS: BP 156/79; PULSE 80; RESP 20; TEMP 97.6
[2022-11-07] MEDS: VANCOMYCIN 250MG/5ML ORAL SYRINGE PO SCH ×4 (06:08→23:06)
[2022-11-07] MEDS: PIPERACILLIN/TAZOBACTAM 3.375G in DEXT 5% WATER 50ML IV SCH ×3 (06:08→23:06)
[2022-11-07] MEDS: DILTIAZEM HCL 30MG TABLET PO SCH ×3 (06:08→23:06)
[2022-11-07] MEDS: DEXT 5%/0.45% NACL 1000ML 1,000 ML IV SCH (06:09)
[2022-11-07] MEDS: BLOOD SUGAR DIAGNOSTIC STRIP TEST SCH ×4 (06:09→23:07)
[2022-11-07 07:24] LABS: BASOPHILS % 0.6 % (0.0-2.0); EOSINOPHILS % 3.5 % (0.0-5.0); HEMATOCRIT. 31.2 % (42.0-52.0); HEMOGLOBIN. 9.9 g/dL (14.0-18.0); LYMPHOCYTES % 26.1 % (20.0-50.0); MEAN CORPUSCULAR HEMOGLOBIN 27.6 pg (28.0-32.0); MEAN CORPUSCULAR HGB CONC 31.8 g/dL (31.0-37.0); MEAN CORPUSCULAR VOLUME 86.6 fL (80.0-94.0); MEAN PLATELET VOLUME 7.4 fl (7.4-10.4); MONOCYTES % 8.1 % (2.0-8.0); NEUTROPHILS % 61.7 % (40.0-76.0); PLATELET 113 x1000/uL (130-400); RED BLOOD CELL COUNT 3.61 mill/uL (4.7-6.1); WHITE BLOOD COUNT 4.7 x1000/uL (4.5-11.0)
[2022-11-07 08:00] VITALS: BP 149/90; PULSE 74; RESP 18; TEMP 97
[2022-11-07 08:00] LABS: DIFFERENTIAL COMMENT 1
[2022-11-07 08:20] LABS: CHLORIDE 94 mEq/L (98-107); INDEX HEMOLYSI 1 (1-3); INDEX ICTERIC 1 (1-4); INDEX LIPEMIC 1 (1-3); SODIUM 134 mEq/L (136-145)
[2022-11-07 08:29] LABS: ALANINE AMINOTRANSFERASE 15 IU/L (13-61); ALBUMIN 2.8 g/dL (3.4-5.0); ASPARTATE AMINOTRANSFERASE 49 IU/L (15-37); BILIRUBIN DIRECT 0.1 mg/dL (0.0-0.2); BILIRUBIN TOTAL 0.6 mg/dL (0.1-1.0); CALCIUM 7.7 mg/dL (8.5-10.1); CARBON DIOXIDE 34 mEq/L (21-32); CREATININE 0.7 mg/dL (0.6-1.3); GLUCOSE 101 mg/dL (70-105); PROTEIN TOTAL 7.7 g/dL (6.0-8.3); UREA NITROGEN BLOOD 2 mg/dL (7-21)
[2022-11-07] MEDS: ATORVASTATIN CALCIUM 40MG TABLET PO SCH (08:42)
[2022-11-07] MEDS: ALLOPURINOL 100 MG TABLET PO SCH (08:42)
[2022-11-07] MEDS ORDERED: METOLAZONE 2.5MG TABLET PO NR (09:00)
[2022-11-07] MEDS ORDERED: MAGNESIUM 2 G PREMIX 50 ML IV NR (10:00)
[2022-11-07 12:00] VITALS: BP 140/80; PULSE 68; RESP 18; TEMP 97
[2022-11-07] MEDS ORDERED: MENTHOL/LANOLIN/CALAMINE/ZN OX OINT 71GM TOP PRN (12:45)
[2022-11-07] MEDS: NYSTATIN POWDER 15GM TOP SCH ×2 (13:00→17:12)
[2022-11-07] MEDS: DEXT 5%/0.45% NACL KCL 20MEQ/L 1,000 ML IV SCH (15:54)
[2022-11-07 16:00] VITALS: BP 139/9; PULSE 83; RESP 18; TEMP 97.1
[2022-11-07] MEDS: DIGOXIN 125MCG TABLET PO SCH (17:11)
[2022-11-07 20:00] VITALS: BP 143/91; PULSE 69; RESP 18; TEMP 97.6
[2022-11-08] VITALS (8 sets, daily range): BP systolic 118–151; BP diastolic 74–96; PULSE 74–88; RESP 16–20; TEMP 97–98.1; O2SAT 99
[2022-11-08] MEDS: BLOOD SUGAR DIAGNOSTIC STRIP TEST SCH ×3 (05:35→17:16)
[2022-11-08] MEDS: PIPERACILLIN/TAZOBACTAM 3.375G in DEXT 5% WATER 50ML IV SCH ×2 (05:35→13:27)
[2022-11-08] MEDS: DILTIAZEM HCL 30MG TABLET PO SCH (05:35)
[2022-11-08] MEDS: VANCOMYCIN 250MG/5ML ORAL SYRINGE PO SCH ×3 (05:35→18:14)
[2022-11-08 07:24] LABS: BASOPHILS % 0.4 % (0.0-2.0); EOSINOPHILS % 5.9 % (0.0-5.0); HEMATOCRIT. 32.8 % (42.0-52.0); HEMOGLOBIN. 10.6 g/dL (14.0-18.0); LYMPHOCYTES % 37.9 % (20.0-50.0); MEAN CORPUSCULAR HEMOGLOBIN 28.1 pg (28.0-32.0); MEAN CORPUSCULAR HGB CONC 32.2 g/dL (31.0-37.0); MEAN CORPUSCULAR VOLUME 87.3 fL (80.0-94.0); MEAN PLATELET VOLUME 7.5 fl (7.4-10.4); MONOCYTES % 7.9 % (2.0-8.0); NEUTROPHILS % 47.9 % (40.0-76.0); PLATELET 117 x1000/uL (130-400); RED BLOOD CELL COUNT 3.75 mill/uL (4.7-6.1); RED CELL DISTRIBUTION WIDTH 23.7 % (11.6-14.6); WHITE BLOOD COUNT 5.1 x1000/uL (4.5-11.0)
[2022-11-08 07:41] LABS: DIFFERENTIAL COMMENT 1
[2022-11-08 08:12] LABS: CHLORIDE 95 mEq/L (98-107); INDEX HEMOLYSI 1 (1-3); INDEX ICTERIC 1 (1-4); INDEX LIPEMIC 1 (1-3); POTASSIUM 3.1 mEq/L (3.5-5.1); SODIUM 135 mEq/L (136-145)
[2022-11-08 08:22] LABS: CARBON DIOXIDE 31 mEq/L (21-32); CREATININE 0.7 mg/dL (0.6-1.3); GLUCOSE 91 mg/dL (70-105); UREA NITROGEN BLOOD 1 mg/dL (7-21)
[2022-11-08] MEDS ORDERED: POTASSIUM CHLORIDE 20MEQ TABLET SR PO NR (08:45)
[2022-11-08] MEDS: NYSTATIN POWDER 15GM TOP SCH ×3 (09:27→18:15)
[2022-11-08] MEDS: ALLOPURINOL 100 MG TABLET PO SCH (09:27)
[2022-11-08] MEDS: ATORVASTATIN CALCIUM 40MG TABLET PO SCH (09:28)
[2022-11-08] MEDS: DEXT 5%/0.45% NACL KCL 20MEQ/L 1,000 ML IV SCH ×2 (10:30→13:28)
[2022-11-08] MEDS ORDERED: DILTIAZEM HCL 60MG TABLET PO SCH (14:00)
[2022-11-08] MEDS: DIGOXIN 125MCG TABLET PO SCH (18:14)
[2022-11-12 04:11] LABS: ALPHA FETOPROTEIN TUMOR MARKER 2.2 ng/mL (0.0-8.4)
== END 2022-11-08 19:40 | disposition home or self-care (01) | DRG 872 ==
LOC: ER 07:02 → 7WST 12:46 → EDBEDREQ 12:48 → EDBEDREQTM 12:48
PROVIDERS: ADMIT Internal Medicine; ATTEND Internal Medicine
DX: A41.9 Sepsis, unspecified organism (principal); J90 Pleural effusion, not elsewhere classified; I48.92 Unspecified atrial flutter; E27.2 Addisonian crisis; D64.9 Anemia, unspecified; E87.6 Hypokalemia; K62.89 Other specified diseases of anus and rectum; E11.649 Type 2 diabetes mellitus with hypoglycemia without coma; E03.9 Hypothyroidism, unspecified; K57.90 Diverticulosis of intestine, part unspecified, without perforation or abscess without bleeding; N32.89 Other specified disorders of bladder; R16.0 Hepatomegaly, not elsewhere classified; Z20.822 Contact with and (suspected) exposure to COVID-19; N20.0 Calculus of kidney; K76.0 Fatty (change of) liver, not elsewhere classified; M10.9 Gout, unspecified; I10 Essential (primary) hypertension; I48.91 Unspecified atrial fibrillation; M79.7 Fibromyalgia; Z83.3 Family history of diabetes mellitus; E11.40 Type 2 diabetes mellitus with diabetic neuropathy, unspecified; R07.89 Other chest pain
CPT/HCPCS: 36415; 36600; 71045; 74176; 76700; 80048; 80053; 80076; 80162; 80305; 81003; 82010; 82105; 82270; 82375; 82378; 82533; 82550; 82553; 82607; 82728; 82746; 82805; 82962; 83036; 83540; 83550; 83605; 83735; 83880; 83930; 84132; 84145; 84153; 84443; 84484; 84550; 85025; 85044; 86301; 86803; 87015; 87045; 87340; 87426; 87427; 87449; 87493; 89055; 93005; 93970; 99291; C1893; C9803; J1720; J2405; J2543; J3370; J3475; J3480; J3490; J7060; G0103